=== PATIENT | female | born 1945 | race Caucasian/White ===

== ENCOUNTER → 2017-07-16 | Outpatient (CLI) | payer MEDICARE ==
[~2017-07-16] MED LIST: ADVIL200 M2 PO; ALEVE220 M1 PO; COATED ASPIRIN325 M1 PO; FLUOXETINE HCL20 M1 PO; IMITREX PO; IMITREX5 MG PO; LOSARTAN-HCTZ1 EAC2 PO; NAPROXEN PO; NORCO 10/3251 TAB PO; NORVASC PO; OXYTROL1 PATCH.BW TOP; PROAIR HFA8.5 GM INH; SYMBICORT INH; SYNTHROID0.05 MG PO; TOPROL XL PO; TYLENOL PM; VITAMIN D3 PO; ZOCOR PO
== END | disposition home or self-care (01) ==
LOC: CECH 11:23
DX: R01.1 Cardiac murmur, unspecified (principal); I35.0 Nonrheumatic aortic (valve) stenosis; I34.0 Nonrheumatic mitral (valve) insufficiency; I36.1 Nonrheumatic tricuspid (valve) insufficiency
CPT/HCPCS: 93306